=== PATIENT | female | born 1955 | race Caucasian/White ===

== ENCOUNTER 2018-01-26 08:53 | Outpatient (CLI) | payer OTHER ==
--- NOTE | 2018-01-26 09:55 | XRay Report ---
ROUTINE CHEST, TWO VIEWS: HISTORY: Encounter for other preprocedural examination. The trachea, heart, mediastinal contour, lung [place] and bony thorax are unremarkable. IMPRESSION: Unremarkable chest x-ray.
== END 2018-01-26 08:54 | disposition home or self-care (01) ==
LOC: XRAY 08:53
PROVIDERS: ATTEND Internal Medicine
DX: Z01.818 Encounter for other preprocedural examination (principal)
CPT/HCPCS: 71046